=== PATIENT | female | born 1945 | race Caucasian/White ===

== ENCOUNTER 2018-11-15 13:57 | Emergency (ER) | payer OTHER ==
[2018-11-15] MEDS ORDERED: HYDROCODONE/APAP 7.5/325 MG TAB ONE (14:13)
--- NOTE | 2018-11-15 15:03 | RAD REPORT ---
EXAM DESCRIPTION: RAD - Forearm Left - 11/15/2018 2:42 pm CLINICAL HISTORY: Left forearm pain status post injury FINDINGS: Impacted mildly to moderately displaced fracture distal radius. Ulnar styloid avulsion fra cture
--- NOTE | 2018-11-15 15:12 | EDPHYS ---
Physician Documentation [facility] Name: Mireille Chakraborty Age: 73 yrs Sex: Female : 1945 Arrival Date: 11/15/2018 Time: 13:58 Bed 30 Private MD: ED Physician Braeden Perez HPI: 11/15 14:20 This 73 yrs old Female presents to ER via Ambulatory with complaints of Fall kb Injury, Wrist Injury. 14:20 Details of fall: The patient fell from an upright position, while walking. Onset: The kb symptoms/episode began/occurred just prior to arrival. Associated injuries: The patient sustained left wrist, decreased range of motion, deformity, painful injury, swelling. Severity of symptoms: At their worst the symptoms were moderate, in the emergency department the symptoms are unchanged. The patient has not experienced similar symptoms in the past. The patient has not recently seen a physician. Pt was walking and tripped on uneven sidewalk, falling onto outstretched hand. c/o pain to left wrist. Historical: - Allergies: 14:06 No Known Allergies; la1 - PMHx: 14:06 Diabetes - IDDM; Hypertension; Hypothyroidism; Osteoporosis; la1 - Immunization history:: Adult Immunizations up to date. - Social history:: Smoking status: Patient/guardian denies using tobacco. - Immunization history: Last tetanus immunization: - up to date. < 5 years ago. - Ebola Screening: : No symptoms or risks identified at this time. ROS: 14:20 Constitutional: Negative for fever, chills, and weight loss, Neck: Negative for injury, kb pain, and swelling, Cardiovascular: Negative for chest pain, palpitations, and edema, Respiratory: Negative for shortness of breath, cough, wheezing, and pleuritic chest pain, Abdomen/GI: Negative for abdominal pain, nausea, vomiting, diarrhea, and constipation, Skin: Negative for injury, rash, and discoloration, Neuro: Negative for headache, weakness, numbness, tingling, and seizure. 14:20 MS/extremity: Positive for injury or acute deformity, decreased range of motion, pain, swelling, tenderness, of the left wrist. Exam: 14:17 Constitutional: This is a well developed, well nourished patient who is awake, alert, kb and in no acute distress. Head/Face: Normocephalic, atraumatic. Chest/axilla: Normal chest wall appearance and motion. Nontender with no deformity. No lesions are appreciated. Cardiovascular: Regular rate and rhythm with a normal S1 and S2. No gallops, murmurs, or rubs. Normal PMI, no JVD. No pulse deficits. Respiratory: Lungs have equal breath sounds bilaterally, clear to auscultation and percussion. No rales, rhonchi or wheezes noted. No increased work of breathing, no retractions or nasal flaring. Abdomen/GI: Soft, non-tender, with normal bowel sounds. No distension or tympany. No guarding or rebound. No evidence of tenderness throughout. Skin: Warm, dry with normal turgor. Normal color with no rashes, no lesions, and no evidence of cellulitis. Neuro: Awake and alert, GCS 15, oriented to person, place, time, and situation. Cranial nerves II-XII grossly intact. Motor strength 5/5 in all extremities. Sensory grossly intact. Cerebellar exam normal. Normal gait. 14:17 Musculoskeletal/extremity: Extremities: grossly normal except: noted in the left wrist: deformity, pain, swelling, tenderness, ROM: limited active range of motion due to pain, in the left wrist, Circulation is intact in all extremities. Sensation intact. Vital Signs: 14:06 BP 129 / 51; Pulse 55; Resp 16; Temp 97.1; Pulse Ox 98% on R/A; Weight 74.84 kg; Height la1 5 ft. 8 in. (172.72 cm); 15:43 BP 118 / 60; Pulse 56; Resp 15; Pulse Ox 99% on R/A; rv 14:06 Body Mass Index 25.09 (74.84 kg, 172.72 cm) la1 Antonella Coma Score: 14:28 Eye Response: spontaneous(4). Verbal Response: oriented(5). Motor Response: obeys rv commands(6). Total: 15. Trauma Score (Adult): 14:28 Eye Response: spontaneous(1); Verbal Response: oriented(1); Motor Response: obeys rv commands(2); Systolic BP: > 89 mm Hg(4); Respiratory Rate: 10 to 29 per min(4); Polk Score: 15; Trauma Score: 12 MDM: 14:07 Patient medically screened. kb 14:17 Data reviewed: vital signs, nurses notes. Data interpreted: Pulse oximetry: on room air kb is 98 %. Interpretation: normal. 15:01 Counseling: I had a detailed discussion with the patient and/or guardian regarding: the kb historical points, exam findings, and any diagnostic results supporting the discharge/admit diagnosis, radiology results, the need for outpatient follow up, a orthopedic surgeon, to return to the emergency department if symptoms worsen or persist or if there are any questions or concerns that arise at home. 11/15 14:10 Order name: Forearm Left XRAY; Complete Time: 15:17 kb 11/15 14:57 Order name: Sugar Tong Forearm Splint; Complete Time: 15:38 kb 11/15 14:57 Order name: Sling; Complete Time: 15:38 kb Administered Medications: 14:15 Drug: [place] (7.5 mg-325 mg) 1 tabs Route: PO; rv 14:15 Follow up: rass 0 rv 15:42 Follow up: Response: Pain is decreased; RASS: Drowsy (-1) rv Disposition: 11/16 09:22 Co-signature as Attending Physician, Braeden Perez MD I agree with the assessment and andreina plan of care. Disposition: 11/15/18 15:08 Discharged to Home. Impression: Unspecified fracture of left forearm - displaced distal radius. - Condition is Stable. - Discharge Instructions: Forearm Fracture, Ztst-op-Svam, Cast or Splint Care, Rcmn-zb-Cajo. - Prescriptions for Tylenol- Codeine #3 300-30 mg Oral Tablet - take 1 tablet by ORAL route every 4 hours As needed; 15 tablet. - Medication Reconciliation Form, Thank You Letter, Antibiotic Education, Prescription Opioid Use form. - Follow up: Emergency Department; When: As needed; Reason: Worsening of condition. Follow up: Private Physician; When: 2 - 3 days; Reason: Recheck today's complaints, Continuance of care, Re-evaluation by your physician. Signatures: Dispatcher [employer] Norma March, LAURA MARCELINO-Braeden Ron MD MD cha Attema, Lee, RN RN la1 Dylan Grimm, RN RN rv Corrections: (The following items were deleted from the chart) 11/15 15:45 15:08 11/15/2018 15:08 Discharged to Home. Impression: Unspecified fracture of left rv forearm - displaced distal radius. Condition is Stable. Forms are Medication Reconciliation Form, Thank You Letter, Antibiotic Education, Prescription Opioid Use. Follow up: Emergency Department; When: As needed; Reason: Worsening of condition. Follow up: Private Physician; When: 2 - 3 days; Reason: Recheck today's complaints, Continuance of care, Re-evaluation by your physician. kb
--- NOTE | 2018-11-15 15:12 | ER ---
Nurse's Notes [facility] Name: Mireille Chakraborty Age: 73 yrs Sex: Female : 1945 Arrival Date: 11/15/2018 Time: 13:58 Bed 30 Private MD: Diagnosis: Unspecified fracture of left forearm-displaced distal radius Presentation: 11/15 14:04 Presenting complaint: Patient states: I fell from standing on to my left outstretched la1 hand, having a lot of wrist pain. Transition of care: patient was not received from another setting of care. Onset of symptoms was November 15, 2018. Risk Assessment: Do you want to hurt yourself or someone else? Patient reports no desire to harm self or others. Initial Sepsis Screen: Does the patient meet any 2 criteria? No. Patient's initial sepsis screen is negative. Does the patient have a suspected source of infection? No. Patient's initial sepsis screen is negative. Care prior to arrival: None. 14:04 Method Of Arrival: Ambulatory la1 14:04 Acuity: GRECIA 4 la1 Historical: - Allergies: 14:06 No Known Allergies; la1 - PMHx: 14:06 Diabetes - IDDM; Hypertension; Hypothyroidism; Osteoporosis; la1 - Immunization history:: Adult Immunizations up to date. - Social history:: Smoking status: Patient/guardian denies using tobacco. - Immunization history: Last tetanus immunization: - up to date. < 5 years ago. - Ebola Screening: : No symptoms or risks identified at this time. Screenin:26 Abuse screen: Denies threats or abuse. Denies injuries from another. Nutritional rv screening: No deficits noted. Tuberculosis screening: No symptoms or risk factors identified. Fall Risk No fall in past 12 months (0 pts). No secondary diagnosis (0 pts). No IV (0 pts). Ambulatory Aid- None/Bed Rest/Nurse Assist (0 pts). Gait- Normal/Bed Rest/Wheelchair (0 pts) Mental Status- Oriented to own ability (0 pts). Total Peres Fall Scale indicates No Risk (0-24 pts). Primary Survey: 14:27 NO uncontrolled hemorrhage observed. Breathing/Chest: Respiratory pattern: regular. rv Circulation: Skin color: pink. Disability Alert. Exposure/Environment: There is no evidence of uncontrolled external bleeding. A warming method has been applied: A warm blanket has been provided to the patient. 14:28 Reassessment Breathing/Chest Respiratory pattern Regular Circulation Color [place] rv Disability Alert. Assessment: 14:24 General: Appears in no apparent distress. comfortable, Behavior is calm, cooperative. rv Pain: Complains of pain in left wrist. Neuro: Level of Consciousness is awake, alert, obeys commands, Oriented to person, place, time, situation. Cardiovascular: Patient's skin is warm and dry. Respiratory: Airway is patent. GI: Abdomen is flat. : No signs and/or symptoms were reported regarding the genitourinary system. EENT: No signs and/or symptoms were reported regarding the EENT system. Derm: Wound noted lateral aspect of right calf and left knee and palmar aspect of right forearm Wound is abrasions. Musculoskeletal: Reports pain in left wrist. Vital Signs: 14:06 BP 129 / 51; Pulse 55; Resp 16; Temp 97.1; Pulse Ox 98% on R/A; Weight 74.84 kg; Height la1 5 ft. 8 in. (172.72 cm); 15:43 BP 118 / 60; Pulse 56; Resp 15; Pulse Ox 99% on R/A; rv 14:06 Body Mass Index 25.09 (74.84 kg, 172.72 cm) la1 [place] Coma Score: 14:28 Eye Response: spontaneous(4). Verbal Response: oriented(5). Motor Response: obeys rv commands(6). Total: 15. Trauma Score (Adult): 14:28 Eye Response: spontaneous(1); Verbal Response: oriented(1); Motor Response: obeys rv commands(2); Systolic BP: > 89 mm Hg(4); Respiratory Rate: 10 to 29 per min(4); Antonella Score: 15; Trauma Score: 12 ED Course: 13:58 Patient arrived in ED. mr 14:05 Triage completed. la1 14:06 Norm[facility] Bailey [facility]C [facility]. kb 14:06 Braeden Perez MD is Attending Physician. kb 14:06 Arm band placed on left wrist. la1 14:11 Dylan Grimm RN is Primary Nurse. rv 14:22 Wound care: to abrasion, located on palmar aspect of right forearm, lateral aspect of rv right calf and left knee was cleaned with Hibiclens, irrigated with normal saline, Patient tolerated well. 14:28 Patient has correct armband on for positive identification. Bed in low position. Call rv light in reach. Side rails up X 1. Pulse ox on. NIBP on. 14:28 Patient maintains SpO2 saturation greater than 95% on room air. rv 14:29 Thermoregulation: warm blanket given to patient. rv 14:44 Forearm Left XRAY In Process Unspecified. EDMS 15:44 No provider procedures requiring assistance completed. Patient did not have IV access rv during this emergency room visit. Orthoglass splint: Sugar tong splint applied on left arm. Administered Medications: 14:15 Drug: [place] (7.5 mg-325 mg) 1 tabs Route: PO; rv 14:15 Follow up: rass 0 rv 15:42 Follow up: Response: Pain is decreased; RASS: Drowsy (-1) rv Intake: Outcome: 15:08 Discharge ordered by . kb 15:44 Discharged to home ambulatory, with family. rv 15:44 Condition: good 15:44 Discharge instructions given to patient, family, Instructed on discharge instructions, follow up and referral plans. medication usage, Demonstrated understanding of instructions, follow-up care, medications, splint care, Prescriptions given X 1. 15:45 Patient left the ED. rv Signatures: Dispatcher [employer] Norma March, LAURA MARCELINO-Saray NobletatyRakesh, RN RN la1 Dylan Grimm RN RN rv
== END 2018-11-15 15:45 | disposition home or self-care (01) ==
LOC: ER 13:57
PROC: 2W3DX1Z Immobilization of Left Lower Arm using Splint (ICD-10-PCS; principal; 2018-11-15)
DX: S52.502A Unspecified fracture of the lower end of left radius, initial encounter for closed fracture (principal); W18.30XA Fall on same level, unspecified, initial encounter; Y93.9 Activity, unspecified; Y92.9 Unspecified place or not applicable
CPT/HCPCS: 99284